=== PATIENT | female | born 1975 | race Caucasian/White ===

== ENCOUNTER → 2018-03-10 | Outpatient (CLI) | payer BC | LOC: CIMAGING 07:26 | PROVIDERS: ATTEND Family Medicine Sports Medicine | DX: Z12.31 Encounter for screening mammogram for malignant neoplasm of breast (principal) ==

== ENCOUNTER → 2018-11-10 | Outpatient (CLI) | payer BC | LOC: EMCIMAGING 15:14 ==

== ENCOUNTER 2018-11-15 05:37 | Day surgery (SDC) | payer BC | END 2018-11-15 10:36 | disposition home or self-care (01) | LOC: FSGY 05:37 ==